=== PATIENT | female | born 2000 | race American Indian/Alaskan Native ===

== ENCOUNTER 2024-09-28 05:24 | Inpatient (IN) | payer BC, MEDICAID ==
[2024-09-28] MEDS: Oxytocin/0.9 % Sodium Chloride 30 UNIT/500 ML BAG IV SCH (04:09)
[2024-09-28] MEDS ORDERED: Carboprost Tromethamine 250 MCG/1 mL Vial IM PRN (05:57)
[2024-09-28] MEDS ORDERED: Methylergonovine 0.2 MG/1 ML Amp IM PRN (05:57)
[2024-09-28] MEDS ORDERED: Sodium Chloride 0.9% 2.5 ML Syringe FLUSH PRN (05:57)
[2024-09-28] MEDS ORDERED: Lidocaine 1% 50 ML MDV INJECT PRN (05:57)
[2024-09-28] MEDS ORDERED: Misoprostol 200 MCG Tab PO PRN (05:57)
[2024-09-28] MEDS ORDERED: Tranexamic Acid in NACL,ISO-OS 1,000 MG in Premix Bag 1 BAG IV PRN (05:57)
[2024-09-28] MEDS ORDERED: Water For Irrigation,Sterile 1,000 ML Container IRR PRN (05:57)
[2024-09-28] MEDS ORDERED: Sodium Chloride 0.9% 20 ML SDV IV PRN (05:57)
[2024-09-28] MEDS ORDERED: Sodium Chloride 0.9% 10 ML Syringe FLUSH PRN (05:57)
[2024-09-28] MEDS: Lactated Ringers 1,000 ML IV SCH (06:39)
[2024-09-28] MEDS: Ampicillin 2 GM in Sodium Chloride 0.9% 100 ML IV ONE (06:40)
[2024-09-28] MEDS: Ondansetron 4 MG/2 ML SDV IVPUSH PRN (06:41)
[2024-09-28 06:44] LABS: HEMATOCRIT 31.7 % (37.0-47.0); HEMOGLOBIN 10.5 g/dL (12.0-16.0); MEAN CORPUSCULAR HGB CONC 33.1 g/dL (32.0-36.0); MEAN CORPUSCULAR VOLUME 78.5 fL (83.0-99.0); MEAN PLATELET VOLUME 10.4 fL (9.4-12.3); PLATELET COUNT,PLT 283 K/uL (150-400); RED BLOOD CELL COUNT 4.04 M/uL (4.10-5.30); WHITE BLOOD CELL COUNT,WBC 10.36 K/uL (3.9-11.3)
[2024-09-28] MEDS ORDERED: ePHEDrine 50 MG/ML SDV IVPUSH PRN (09:00)
[2024-09-28] MEDS ORDERED: dexmedeTOMIDine HCl 200 MCG/2 ML SDV EPIDUR SCH (09:00)
[2024-09-28] MEDS ORDERED: Phenylephrine HCl In 0.9% NaCl 1 MG/10 ML Syringe IVPUSH PRN (09:00)
[2024-09-28] MEDS ORDERED: Ropivacaine HCl/PF 400 MG in Premix Bag 1 BAG EPIDUR SCH (09:00)
[2024-09-28] MEDS: Butorphanol 2 MG/ML SDV IVPUSH PRN (10:04)
[2024-09-28] MEDS: Ampicillin 1 GM in Sodium Chloride 0.9% 50 ML IV SCH (10:09)
[2024-09-28] MEDS: Butorphanol 2 MG/ML SDV IVPUSH ONE (14:16)
[2024-09-28] MEDS ORDERED: Lanolin 100% Cream 7 GM Tube TOP PRN (16:38)
[2024-09-28] MEDS ORDERED: Docusate Sodium 100 MG Cap PO PRN (16:38)
[2024-09-28] MEDS: Ibuprofen 800 MG Tab PO PRN (17:27)
[2024-09-28] MEDS: Benzocaine/Menthol 20%-0.5% Spray 78 GM Cannister TOP PRN (17:27)
[2024-09-28] MEDS: Witch Hazel Medicated Pads 40/Jar TOP PRN (17:28)
[2024-09-28 17:57] LABS: PH,UMBILICAL ARTERIAL 7.171 (7.18-7.38)
[2024-09-28 17:58] LABS: PH,UMBILICAL VENOUS 7.277 (7.25-7.45)
[2024-09-29] MEDS: Acetaminophen 500 MG Tab PO PRN (00:46)
[2024-09-29 05:49] LABS: HEMATOCRIT 27.8 % (37.0-47.0); HEMOGLOBIN 9.1 g/dL (12.0-16.0)
== END 2024-09-29 23:30 | disposition home or self-care (01) | DRG 560 ==
LOC: MW.OB 05:24 → MW.OBCHECK 05:24 → MW.OB 05:57 → OBSVTOIN 16:05 → MW.OB 20:33
PROVIDERS: ADMIT Obstetrics & Gynecology Obstetrics; ATTEND Obstetrics & Gynecology Obstetrics
PROC: 0HQ9XZZ Repair Perineum Skin, External Approach (ICD-10-PCS; principal; 2024-09-28)
PROC: 10E0XZZ Delivery of Products of Conception, External Approach (ICD-10-PCS; 2024-09-28)
DX: O99.824 Streptococcus B carrier state complicating childbirth (principal); O70.0 First degree perineal laceration during delivery; Z37.0 Single live birth; Z3A.38 38 weeks gestation of pregnancy
CPT/HCPCS: 36415; 59025; 59409; 82803; 85014; 85018; 85027; 86592; 86706; 86850; 86900; 86901; 87340; A9270-GY; J0290; J0595; J2405; J2590; J3490; J7120